=== PATIENT | female | born 1975 | race American Indian/Alaskan Native ===

== ENCOUNTER 2019-03-08 11:13 | Emergency (ER) | payer SELFPAY ==
[2019-03-08 11:37] VITALS: BP 127/85
--- NOTE | 2019-03-08 11:41 | Emergency Department Report ---
Chief Complaint: Extremity Problem,Nontraumatic Stated Complaint: FLUID ON L KNEE Time Seen by Provider: 03/08/19 11:36 - HPI History of Present Illness: This is a 44 y.o. F that presents to the ER with pain and swelling to left knee x 1 month. PMH Hyperthyroidism - Exam Vital Signs: Vital Signs 03/08/19 11:35 Temperature 98 F Pulse Rate 75 Respiratory 18 Rate Blood Pressure 127/85 O2 Sat by Pulse 100 Oximetry MSE screening note: Focused history and physical exam performed. Due to findings the following was ordered: X-ray of left knee ED Disposition for MSE Condition: Stable
[2019-03-08] MEDS ORDERED: IBUPROFEN PO ONE (13:27)
--- NOTE | 2019-03-08 13:50 | XRay Report ---
PROCEDURE: XR KNEE 3V LT TECHNIQUE: 3 views of the left knee HISTORY: swelling and pain COMPARISONS: None. FINDINGS: There is mild medial and patellofemoral joint space narrowing with associated osteophyte formation. N o acute fracture or dislocation. There is a moderate joint effusion. The overlying soft tissues are i ntact. There is no radiopaque foreign body. IMPRESSION: Degenerative changes of the left knee without acute fracture or dislocation. Moderate joint effusion. If there is concern for ligamentous injury, consider MRI for further evaluat ion. This document is electronically signed by Ria Pearl MD., Mar 08 2019 01:48:24 PM ET
--- NOTE | 2019-03-08 13:54 | Emergency Department Report ---
HPI - General Chief Complaint: Extremity Problem,Nontraumatic Time Seen by Provider: 03/08/19 11:36 - HPI HPI: This is a 44-year-old female presents ED complaining of left knee pain and swelling the past 2 days. Patient states that she felt it pop out of place and has noticed some swelling around the left knee joint. Patient denies any trauma to the head, loss of consciousness after incident. ED Past Medical Hx - Past Medical History Previous Medical History?: Yes Additional medical history: Englarged thyroid - Surgical History Past Surgical History?: Yes Additional Surgical History: thyroidectomy. left rotator cuff repair - Social History Smoking Status: Never Smoker Substance Use Type: None - Medications Home Medications: Home Medications Medication Instructions Recorded Confirmed Last Taken Type Cyclobenzaprine [Flexeril] 10 mg PO QHS PRN #20 tablet 03/08/19 Unknown Rx Ibuprofen [Motrin 800 MG tab] 800 mg PO TID #20 tablet 03/08/19 Unknown Rx ED Review of Systems ROS: Stated complaint: FLUID ON L KNEE Other details as noted in HPI Comment: All other systems reviewed and negative Physical Exam - Physical Exam Vital Signs: Vital Signs 03/08/19 03/08/19 11:35 13:34 Temperature 98 F Pulse Rate 75 Respiratory 18 16 Rate Blood Pressure 127/85 O2 Sat by Pulse 100 Oximetry Physical Exam: GENERAL: Alert and oriented x3, no apparent distress, Normal Gait, atraumatic. HEAD: Head is normocephalic and a-traumatic. NECK: Supple. Non edematous, No lymphadenopathy or thyromegaly. No C-spine tenderness, full range of motion LUNGS: Symetrical with respiration, No wheezing, no rales or crackles, CTAB. HEART: S1, S2 present, regular rate and rhythm without murmur, no rubs, no gallops. Non tender to palpation EXTREMITIES/MUSCULOSKELETAL: No cyanosis, clubbing, rash, lesions or edema. Full ROM bilaterally. LE Pulses 2+ bilaterally. LE 5+ strength bilaterally, mild swelling to the knee, no pitting edema, no erythema NEUROLOGIC: The patient is cooperative with no focal neurologic deficits. SKIN: Warm and dry, No lesions, No ulceration or induration present. ED Course Vital Signs 03/08/19 03/08/19 11:35 13:34 Temperature 98 F Pulse Rate 75 Respiratory 18 16 Rate Blood Pressure 127/85 O2 Sat by Pulse 100 Oximetry ED Medical Decision Making - Medical Decision Making 44-year-old female presents with knee sprain. X-ray shows knee effusion, no acute fracture or dislocation. Ulices wrap placed on the knee. Discussed to follow up with primary care physician. Orthopedic referral given. Critical care attestation.: If time is entered above; I have spent that time in minutes in the direct care of this critically ill patient, excluding procedure time. ED Disposition Clinical Impression: Knee pain, left Disposition: DC- TO HOME OR SELFCARE Is pt being admited?: No Does the pt Need Aspirin: No Condition: Stable Instructions: Knee Effusion (ED), Knee Pain (ED), Arthralgia (ED), Knee Exercises (GEN) Additional Instructions: Make sure to follow up with the primary care physician as discussed. Take all your medications as you've been prescribed. If you have any worsening symptoms or develop new symptoms please return to ED immediately. Prescriptions: Cyclobenzaprine [Flexeril] 10 mg PO QHS PRN #20 tablet PRN Reason: Muscle Spasm Ibuprofen [Motrin 800 MG tab] 800 mg PO TID #20 tablet Referrals: [facility] MD NOAM [Primary Care Provider] - 3-5 Days PUMA BUCKNER MD [Staff Physician] - 3-5 Days Forms: Accompanied Note, Work/School Release Form(ED) Time of Disposition: 13:59
== END 2019-03-08 14:24 | disposition home or self-care (01) ==
LOC: ED 11:13
DX: M25.562 Pain in left knee (principal); R22.42 Localized swelling, mass and lump, left lower limb
CPT/HCPCS: 99283

== ENCOUNTER 2019-08-20 09:30 | Emergency (ER) | payer SELFPAY ==
--- NOTE | 2019-08-20 10:51 | Emergency Department Report ---
Minor Respiratory - HPI Chief Complaint: Upper Respiratory Infection Stated Complaint: BUMP UNDER TONGUE/SINUS INFEC Time Seen by Provider: 08/20/19 10:41 Duration: 2 Days Minor Respiratory: Yes Rhinorrhea, Yes Able to Tolerate Fluids, No Sore Throat, No Ear Pain, No Cough, No Sick Contacts, No Hemoptysis, No Chest Pain, No Shortness of Breath, No Fever Other History: 44-year-old -[place] female presents to the emergency room as a congestion, runny nose, chills. Patient also complains of a blister on her right upper lip. Also complaints of sores in mouth underneath her tongue. She reports that she's having clear discharge from the nose which is clear discharge. ED Review of Systems ROS: Stated complaint: BUMP UNDER TONGUE/SINUS INFEC Other details as noted in HPI Comment: All other systems reviewed and negative Constitutional: chills. denies: fever ENT: congestion, other (rhinorrhea) Respiratory: denies: cough, shortness of breath, wheezing Cardiovascular: denies: chest pain, palpitations Neurological: headache ED Past Medical Hx - Past Medical History Previous Medical History?: Yes Additional medical history: Englarged thyroid - Surgical History Past Surgical History?: Yes Additional Surgical History: thyroidectomy. left rotator cuff repair - Social History Smoking Status: Never Smoker Substance Use Type: None - Medications Home Medications: Home Medications Medication Instructions Recorded Confirmed Last Taken Type Cyclobenzaprine [Flexeril] 10 mg PO QHS PRN #20 tablet 03/08/19 Unknown Rx Ibuprofen [Motrin 800 MG tab] 800 mg PO TID #20 tablet 03/08/19 Unknown Rx Acyclovir [Zovirax Tab] 400 mg PO Q8H #21 tab 08/20/19 Unknown Rx Fluticasone [Flonase] 1 spray NS QDAY #1 bottle 08/20/19 Unknown Rx Minor Respiratory Exam - Exam General: Vital signs noted. No distress. Alert and acting appropriately. HEENT: Yes Moist Mucous Membranes, Yes Rhinorrhea, Yes Frontal Tenderness, Yes Maxillary Tenderness, No Pharyngeal Erythema (ulcerative lesions on the floor of the mouth) Ear: Neither TM Bulge, Neither TM Erythema, Neither EAC Pain, Neither EAC Discharge Neck: Yes Supple, No Adenopathy Lungs: Yes Good Air Exchange, No Wheezes, No Ronchi, No Stridor, No Cough, No Labored Respirations, No Retractions, No Use of Accessory Muscles, No Other Abnormal Lung Sounds Heart: Yes Regular, No Murmur Abdomen: Yes Normal Bowel Sounds, No Tenderness, No Peritoneal Signs Skin: No Rash, No Edema Neurologic: Alert and oriented, no deficits. Musculoskeletal: Unremarkable. ED Course Vital Signs 08/20/19 09:44 Temperature 98.1 F Pulse Rate 88 Respiratory 16 Rate Blood Pressure 124/76 O2 Sat by Pulse 99 Oximetry ED Medical Decision Making - Medical Decision Making 44-year-old -[place] female presents to the emergency room as a congestion, runny nose, chills. Patient also complains of a blister on her right upper lip. Also complaints of sores in mouth underneath her tongue. She reports that she's having clear discharge from the nose which is clear discharge. Critical care attestation.: If time is entered above; I have spent that time in minutes in the direct care of this critically ill patient, excluding procedure time. ED Disposition Clinical Impression: Nasal congestion, Oral herpes Disposition: DC- TO HOME OR SELFCARE Is pt being admited?: No Does the pt Need Aspirin: No Condition: Stable Instructions: Oral Herpes Simplex Virus Infections (ED), Loratadine/Pseudoephedrine (By mouth), Fluticasone (Into the nose) Additional Instructions: oxymetazoline spray/Afrin at night Prescriptions: Fluticasone [Flonase] 1 spray NS QDAY #1 bottle Acyclovir [Zovirax Tab] 400 mg PO Q8H #21 tab Referrals: [facility] [Outside] - 3-5 Days [facility] [Outside] - 3-5 Days Forms: Work/School Release Form(ED)
[2019-08-20 11:22] VITALS: BP 123/84
== END 2019-08-20 11:25 | disposition home or self-care (01) ==
LOC: ED 09:30
DX: B00.2 Herpesviral gingivostomatitis and pharyngotonsillitis (principal); Z90.89 Acquired absence of other organs; Z98.890 Other specified postprocedural states; Z79.899 Other long term (current) drug therapy

== ENCOUNTER 2019-12-22 06:50 | Emergency (ER) | payer SELFPAY ==
--- NOTE | 2019-12-22 08:32 | XRay Report ---
CHEST 2 VIEWS INDICATION: SOB. COMPARISON: None FINDINGS: Support devices: None. Heart: Within normal limits. Lungs/pleura: No acute air space or interstitial disease. No pneumothorax. Additional findings: None. IMPRESSION: Normal chest x-ray Signer Name: Braydon Raymond Jr, MD Signed: 12/22/2019 8:28 AM Workstation Name: [id number]
--- NOTE | 2019-12-22 09:21 | Emergency Department Report ---
- General Chief Complaint: Upper Respiratory Infection Stated Complaint: SOB HEADACHE COUGH FATIGUE Time Seen by Provider: 12/22/19 09:11 Source: patient Mode of arrival: Ambulatory Limitations: No Limitations - History of Present Illness Initial Comments: 44-year-old -[place] female presents to the emergency room for cough runny nose shortness of breath. Patient admits to sweats, headache. Patient reports that [place] [employer]. Patient states that 1 of the [place] clerk was coughing in her face accidentally. Patient states that she not sure if she has had a fever since she has been taken Tylenol and ibuprofen for headache and body aches. MD Complaint: fever, cough, sore throat, rhinorrhea Onset/Timin -: days(s) Associated Symptoms: chills, headache, rhinorrhea, sore throat, cough, shortness of breath, right sweats Treatments Prior to Arrival: Acetaminophen - Related Data Previous Rx's Medication Instructions Recorded Last Taken Type Cyclobenzaprine [Flexeril] 10 mg PO QHS PRN #20 tablet 03/08/19 Unknown Rx Ibuprofen [Motrin 800 MG tab] 800 mg PO TID #20 tablet 03/08/19 Unknown Rx Acyclovir [Zovirax Tab] 400 mg PO Q8H #21 tab 08/20/19 Unknown Rx Fluticasone [Flonase] 1 spray NS QDAY #1 bottle 08/20/19 Unknown Rx Allergies Allergy/AdvReac Type Severity Reaction Status Date / Time No Known Allergies Allergy Unverified 03/08/19 11:19 ED Review of Systems ROS: Stated complaint: SOB HEADACHE COUGH FATIGUE Other details as noted in HPI ED Past Medical Hx - Past Medical History Previous Medical History?: Yes Additional medical history: Englarged thyroid - Surgical History Past Surgical History?: Yes Additional Surgical History: thyroidectomy. left rotator cuff repair - Social History Smoking Status: Never Smoker Substance Use Type: None - Medications Home Medications: Home Medications Medication Instructions Recorded Confirmed Last Taken Type Cyclobenzaprine [Flexeril] 10 mg PO QHS PRN #20 tablet 03/08/19 Unknown Rx Ibuprofen [Motrin 800 MG tab] 800 mg PO TID #20 tablet 03/08/19 Unknown Rx Acyclovir [Zovirax Tab] 400 mg PO Q8H #21 tab 08/20/19 Unknown Rx Fluticasone [Flonase] 1 spray NS QDAY #1 bottle 08/20/19 Unknown Rx ED Physical Exam - General Limitations: No Limitations General appearance: alert, in no apparent distress - Head Head exam: Present: atraumatic, normocephalic - Eye Eye exam: Present: normal appearance - ENT ENT exam: Present: mucous membranes dry - Respiratory Respiratory exam: Present: normal lung sounds bilaterally. Absent: respiratory distress - Cardiovascular Cardiovascular Exam: Present: regular rate, normal rhythm. Absent: systolic murmur, diastolic murmur, rubs, gallop - GI/Abdominal GI/Abdominal exam: Present: soft, normal bowel sounds - Back Exam Back exam: Present: normal inspection - Neurological Exam Neurological exam: Present: alert, oriented X3, normal gait - Psychiatric Psychiatric exam: Present: normal affect, normal mood - Skin Skin exam: Present: warm, dry, intact, normal color. Absent: rash ED Course Vital Signs 12/22/19 12/22/19 12/22/19 07:37 09:18 11:32 Temperature 98.3 F Pulse Rate 81 78 Respiratory 20 20 Rate Blood Pressure 109/50 105/50 [Right] O2 Sat by Pulse 98 97 Oximetry ED Medical Decision Making - Radiology Data Radiology results: report reviewed Patient: ANGELICA BUCK MR#: [id number] : 1975 Acct:[id number] Age/Sex: 44 / F ADM Date: 12/22/19 Loc: ED Attending Dr: Ordering Physician: ROMELIA JEONG MD Date of Service: 12/22/19 Procedure(s): XR chest routine 2V Accession Number(s): [id number] cc: ED MD ADENIKE Fluoro Time In Minutes: CHEST 2 VIEWS INDICATION: SOB. COMPARISON: None FINDINGS: Support devices: None. Heart: Within normal limits. Lungs/pleura: No acute air space or interstitial disease. No pneumothorax. Additional findings: None. IMPRESSION: Normal chest x-ray Signer Name: Braydon Raymond Jr, MD Signed: 12/22/2019 8:28 AM Workstation Name: [id number] Transcribed By: TTR Dictated By: BRAYDON RAYMOND JR, MD Electronically Authenticated By: BRAYDON RAYMOND JR, MD Signed Date/Time: 12/22/19827 DD/ TD/TT: - Medical Decision Making 44-year-old -[place] female presents to the emergency room for cough runny nose shortness of breath. Patient admits to sweats, headache. Patient reports that she [place]. Patient states that 1 of [place] clerk was coughing in her face accidentally. Patient states that she not sure if she has had a fever since she has been taken Tylenol and ibuprofen for headache and body aches. 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 Patient had a chest x-ray shows normal. Covid-19 to call has been established. Flu A and B were negative, chest x-ray negative Dr. Donahue bulk picker at the hospital evaluated patient recommendation after speaking to Department of Health is to do self quarantine for 14 days. Discussed with patient my recommendation also discussed with patient she will need to follow-up with her primary care provider if her symptoms starts to get worse. She needs to also check in with her employment to inform them that she is on a 14-day quarantine. Patient verbalized understanding - Differential Diagnosis URI, covid- 19, flu, bronchitis Critical care attestation.: If time is entered above; I have spent that time in minutes in the direct care of this critically ill patient, excluding procedure time. ED Disposition Clinical Impression: Upper respiratory infection, viral Disposition: DC-01 TO HOME OR SELFCARE Is pt being admited?: No Does the pt Need Aspirin: No Condition: Stable Instructions: Viral Syndrome (ED) Additional Instructions: Continue with Tylenol and ibuprofen as needed for body aches and headache. Take [id number] cough medication such as Robitussin or Mucinex. Be sure to drink plenty of fluids and rest. Return back to work on 29 December after being evaluated by your primary care provider. If your symptoms persist or gets worse to follow-up with your primary care provider. Referrals: PRIMARY CARE, [Primary Care Provider] - 3-5 Days KIRILL TINEO MD [Staff Physician] - 3-5 Days Forms: Work/School Release Form(ED)
[2019-12-22 11:32] VITALS: BP 105/50
== END 2019-12-22 13:40 | disposition home or self-care (01) ==
LOC: ED 06:50
DX: J06.9 Acute upper respiratory infection, unspecified (principal); B97.89 Other viral agents as the cause of diseases classified elsewhere; E04.9 Nontoxic goiter, unspecified; Z98.890 Other specified postprocedural states; Z79.1 Long term (current) use of non-steroidal anti-inflammatories (NSAID); Z79.899 Other long term (current) drug therapy
CPT/HCPCS: 71046; 87400

== ENCOUNTER 2019-12-27 15:17 | Emergency (ER) | payer SELFPAY ==
--- NOTE | 2019-12-27 16:19 | Emergency Department Report ---
- General Stated Complaint: FULTON SX Time Seen by Provider: 12/27/19 16:10 Source: patient, old records reviewed Mode of arrival: Ambulatory Limitations: No Limitations - History of Present Illness Initial Comments: Mrs. Hernandez is a 44-year-old female with history of thyroid disease who presents with chest pain cough shortness of breath for 5 days. She was seen 5 days ago by our ED staff and our infection control team. She is at risk for COVID 19 exposure. She works in the airport setting. No confirmed exposure directly to COVID 19. By recommendation of the health department, she was advised to self quarantine for 14 days. She returns the emergency department for worsening shortness of breath and cough. MD Complaint: cough, other (Shortness of breath) -: days(s) (5) Severity: moderate Consistency: constant Improves With: nothing Worsens With: nothing Context: sick contacts Associated Symptoms: denies other symptoms - Related Data Previous Rx's Medication Instructions Recorded Last Taken Type Cyclobenzaprine [Flexeril] 10 mg PO QHS PRN #20 tablet 03/08/19 Unknown Rx Ibuprofen [Motrin 800 MG tab] 800 mg PO TID #20 tablet 03/08/19 Unknown Rx Acyclovir [Zovirax Tab] 400 mg PO Q8H #21 tab 08/20/19 Unknown Rx Fluticasone [Flonase] 1 spray NS QDAY #1 bottle 08/20/19 Unknown Rx Benzonatate [Tessalon Perles] 100 mg PO Q8HR PRN #20 capsule 12/27/19 Unknown Rx Allergies Allergy/AdvReac Type Severity Reaction Status Date / Time No Known Allergies Allergy Unverified 03/08/19 11:19 ED Review of Systems ROS: Stated complaint: FULTON SX Other details as noted in HPI Comment: All other systems reviewed and negative Constitutional: denies: fever, malaise Respiratory: cough, shortness of breath ED Past Medical Hx - Past Medical History Previous Medical History?: Yes Additional medical history: Englarged thyroid - Surgical History Past Surgical History?: Yes Additional Surgical History: thyroidectomy. left rotator cuff repair - Social History Smoking Status: Never Smoker Substance Use Type: None - Medications Home Medications: Home Medications Medication Instructions Recorded Confirmed Last Taken Type Cyclobenzaprine [Flexeril] 10 mg PO QHS PRN #20 tablet 03/08/19 Unknown Rx Ibuprofen [Motrin 800 MG tab] 800 mg PO TID #20 tablet 03/08/19 Unknown Rx Acyclovir [Zovirax Tab] 400 mg PO Q8H #21 tab 08/20/19 Unknown Rx Fluticasone [Flonase] 1 spray NS QDAY #1 bottle 08/20/19 Unknown Rx Benzonatate [Tessalon Perles] 100 mg PO Q8HR PRN #20 capsule 12/27/19 Unknown Rx ED Physical Exam - General General appearance: alert, in no apparent distress, other (Speaking full word sentences frequent cough) - Head Head exam: Present: atraumatic, normocephalic - Eye Eye exam: Present: normal appearance - ENT ENT exam: Present: mucous membranes moist - Neck Neck exam: Present: normal inspection, full ROM - Respiratory Respiratory exam: Present: normal lung sounds bilaterally. Absent: respiratory distress, wheezes, rales, rhonchi - Cardiovascular Cardiovascular Exam: Present: regular rate, normal rhythm, normal heart sounds. Absent: systolic murmur, diastolic murmur, rubs, gallop - GI/Abdominal GI/Abdominal exam: Present: soft, normal bowel sounds. Absent: distended, tenderness, guarding, rebound - Extremities Exam Extremities exam: Present: normal inspection - Neurological Exam Neurological exam: Present: alert, oriented X3 - Psychiatric Psychiatric exam: Present: normal affect, normal mood - Skin Skin exam: Present: warm, dry, intact, normal color. Absent: rash ED Course Vital Signs 12/27/19 17:23 Temperature 97.4 F L Pulse Rate 79 Respiratory 12 Rate Blood Pressure 140/80 [Left] O2 Sat by Pulse 100 Oximetry ED Medical Decision Making - Lab Data Result diagrams: 12/27/19 16:43 12/27/19 16:43 - Radiology Data Radiology results: report reviewed Chest radiograph no acute findings according radiology impression - Medical Decision Making Ms. Hernandez presents with shortness of breath cough no fever. After previous evaluation by infection personnel she was encouraged to self quarantine 14 days. Chest radiograph repeated no pneumonia: CBC chemistry notable for normal l ymphocyte count, microcytic anemia Given reassurance. Prescribed Tessalon for cough. Discharged home Critical care attestation.: If time is entered above; I have spent that time in minutes in the direct care of this critically ill patient, excluding procedure time. ED Disposition Clinical Impression: Upper respiratory infection, viral Disposition: DC-01 TO HOME OR SELFCARE Is pt being admited?: No Does the pt Need Aspirin: No Condition: Stable Instructions: Upper Respiratory Infection (ED) Prescriptions: Benzonatate [Tessalon Perles] 100 mg PO Q8HR PRN #20 capsule PRN Reason: Cough Referrals: KIRILL TINEO MD [Staff Physician] - 7-10 days
--- NOTE | 2019-12-27 16:51 | XRay Report ---
CHEST 2 VIEWS INDICATION: cough. COMPARISON: 12/22/2019 FINDINGS: Support devices: None. Heart: Within normal limits. Lungs/Pleura: No acute air space or interstitial disease. No significant pleural effusion. IMPRESSION: No acute findings. Signer Name: Maurisio Engel MD Signed: 12/27/2019 4:46 PM Workstation Name: [id number]
[2019-12-27 17:00] LABS: Basophils # (Auto) 0.1 K/mm3 (0.0-0.1); Basophils % (Auto) 1.1 % (0.0-1.8); Eosinophils # (Auto) 0.7 K/mm3 (0.0-0.4); Eosinophils % (Auto) 13.4 % (0.0-4.3); Hemoglobin 9.2 gm/dl (10.1-14.3); Lymphocytes # (Auto) 1.5 K/mm3 (1.2-5.4); Lymphocytes % (Auto) 27.2 % (13.4-35.0); Mean Corpuscular HGB Conc 32 % (30-34); Monocytes # (Auto) 0.7 K/mm3 (0.0-0.8); Monocytes % (Auto) 13.2 % (0.0-7.3); Platelet Count 177 K/mm3 (140-440); Red Blood Count 4.16 M/mm3 (3.65-5.03)
[2019-12-27 17:02] LABS: Mean Corpuscular Volume 70 fl (79-97); Red Cell Distribution Width 20.8 % (13.2-15.2)
[2019-12-27 17:20] LABS: BUN/Creatinine Ratio 13; Blood Urea Nitrogen 10 mg/dL (7-17); Hemolysis Index 5
[2019-12-27 18:32] VITALS: BP 137/80
== END 2019-12-27 18:17 | disposition home or self-care (01) ==
LOC: ED 15:17
DX: J06.9 Acute upper respiratory infection, unspecified (principal); Z90.89 Acquired absence of other organs; Z79.899 Other long term (current) drug therapy
CPT/HCPCS: 36415; 71046; 80048; 85025